=== PATIENT | male | born 1995 | race Caucasian/White ===

== ENCOUNTER 2019-03-29 15:14 | Emergency (ER) | payer OTHER ==
[~2019-03-29] VITALS: Ht 182.9 cm; Wt 85.7 kg
[2019-03-29 15:24] VITALS: BP 141/69
[2019-03-29] MEDS ORDERED: KETOROLAC 60 MG/2 ML VIAL IM ONE (15:50)
--- NOTE | 2019-03-29 15:53 | NUR ---
IM MEDS GIVEN.
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
--- NOTE | 2019-03-29 15:59 | NUR ---
FARRUKH GRIER AT BEDSIDE.
[2019-03-29 16:16] VITALS: BP 107/59
--- NOTE | 2019-03-29 16:16 | NUR ---
Patient discharged with v/s stable. Written and verbal after care instructions given and explained cerviacal sprain. Patient alert, oriented and verbalized understanding of instructions. Ambulatory with steady gait. All questions addressed prior to discharge. ID band removed. Patient advised to follow u.p with PMD. Rx of flexeril and ibuprofen given. Patient educated on indication of medication including possible reaction and side effects. Opportunity to ask questions provided and answered. Excuse letter given
== END 2019-03-29 16:16 | disposition home or self-care (01) ==
LOC: MED 15:14
DX: S16.1XXA Strain of muscle, fascia and tendon at neck level, initial encounter (principal); S46.911A Strain of unspecified muscle, fascia and tendon at shoulder and upper arm level, right arm, initial encounter; V89.2XXA Person injured in unspecified motor-vehicle accident, traffic, initial encounter; Y93.89 Activity, other specified; Y92.410 Unspecified street and highway as the place of occurrence of the external cause; Y99.8 Other external cause status
CPT/HCPCS: 96372; 99283; J1885